=== PATIENT | male | born 1975 | race Hispanic/Latino ===

== ENCOUNTER 2019-07-13 08:46 | Outpatient (CLI) | payer OTHER ==
--- NOTE | 2019-07-13 10:07 | MRI ---
LUMBAR SPINE MRI WITH AND WITHOUT CONTRAST: HISTORY: Lumbar degenerative disc disease. COMPARISON: None. TECHNIQUE: MRI lumbar spine is performed with and without intravenous gadolinium administration. Multisequential , multiplanar imaging is performed. FINDINGS: Appropriate T1 marrow signal intensity of the lumbar vertebrae. Lumbar spine vertebral body height is maintained. No fracture. No significant STIR hyperintensity to suggest vertebral body edema or ligamentous injury. Appropriate signal intensity of the visualized solid organs. Appropriate signal intensity of the visualized paraspinal muscles. Postcontrast images do not demonstrate any abnormal enhancement within the thecal sac including the c auda equina and medullaris. There is no abnormal enhancement with regards to the vertebral bodies. There is abnormal enhancement and edema involving the posterior paraspinal muscles at the L4 and L5 l evel. There is hypertrophy and fluid involving the associated left and right facet joint at L4-L5. Enhancement and edema the paraspinal muscles likely represents reactive change from arthropathy. Conus medullaris terminates at the inferior aspect of L1. T12-L1: Adequate disc hydration. No significant central canal stenosis or significant neural foramina l narrowing. L1-L2: Adequate disc hydration. No significant central canal stenosis or significant neural foraminal narrowing. L2-L3: Adequate disc hydration. No significant central canal stenosis or significant neural foraminal narrowing. L3-L4: Adequate disc hydration. Mild loss of disc space height. Broad-based disc bulge, ligamentum fl avum thickening and facet hypertrophy result in mild central canal stenosis. Bilaterally the neural foramina are patent. L4-L5: Adequate disc hydration. No severe loss of disc space height. Broad-based disc bulge with a sm all posterior disc extrusion. There is associated enhancement, T2/STIR hyperintensity along the posterior margin of the annulus compatible with a fissure at the level of the small disc extrusion. T here is ligamentum flavum thickening and facet hypertrophy. Moderate central canal stenosis. Narrowing of both subarticular zones with mass effect upon the traversing right L5 nerve root. Comple te obscuration of the traversing left L5 nerve root. Mild right neural foraminal narrowing. Moderate left neural foraminal narrowing. L5-S1: Adequate disc hydration. There is a central/right subarticular disc bulge. There is associated T2 and STIR hyperintensity, along with enhancement suggesting annular fissure. There is mass effect and partial obscuration traversing right S1 nerve root. No significant stenosis upon the theca l sac or left subarticular zone. Mild to moderate right neural foraminal narrowing. Mild left neural foraminal narrowing. IMPRESSION: 1. Annular fissures at L4-L5 and L5-S1. 2. Moderate central canal stenosis at L4-L5. Complete obscuration traversing left L5 nerve root. Mode rate left neural foraminal narrowing. 3. Mass effect and partial obscuration traversing right S1 nerve root at L5-S1. Mild to moderate righ t neural foraminal narrowing. Transcribed Date/Time: 07/13/2019 10:37 AM
[2019-07-13] MEDS ORDERED: Magnevist 469MG/ML 20 ML VIAL ONE (17:02)
== END 2019-07-13 08:47 | disposition home or self-care (01) ==
LOC: BICMRI 08:46
PROVIDERS: ATTEND Family Medicine
DX: M51.36 Other intervertebral disc degeneration, lumbar region (principal); M51.87 Other intervertebral disc disorders, lumbosacral region; M48.061 Spinal stenosis, lumbar region without neurogenic claudication
CPT/HCPCS: 72158; 82565; A9579

== ENCOUNTER 2023-04-08 08:41 | Outpatient (CLI) | payer BC | END 2023-04-08 08:42 | disposition home or self-care (01) | LOC: MRI 08:41 | PROVIDERS: ATTEND Clinical Nurse Specialist Medical-Surgical | DX: M51.16 Intervertebral disc disorders with radiculopathy, lumbar region (principal); M47.816 Spondylosis without myelopathy or radiculopathy, lumbar region; M48.061 Spinal stenosis, lumbar region without neurogenic claudication | CPT/HCPCS: 72148 ==

== ENCOUNTER 2023-05-13 08:46 | Outpatient (CLI) | payer BC | END 2023-05-13 08:47 | disposition home or self-care (01) | LOC: CT 08:46 | PROVIDERS: ATTEND Surgery | DX: M51.26 Other intervertebral disc displacement, lumbar region (principal); M47.816 Spondylosis without myelopathy or radiculopathy, lumbar region | CPT/HCPCS: 72131 ==

== ENCOUNTER 2024-09-04 07:57 | Outpatient (CLI) | payer BC | END 2024-09-04 07:58 | disposition home or self-care (01) | LOC: BICMRI 07:57 | PROVIDERS: ATTEND Family Medicine | DX: M25.511 Pain in right shoulder (principal); M25.611 Stiffness of right shoulder, not elsewhere classified; R29.898 Other symptoms and signs involving the musculoskeletal system; M75.121 Complete rotator cuff tear or rupture of right shoulder, not specified as traumatic; M19.011 Primary osteoarthritis, right shoulder; Z98.890 Other specified postprocedural states ==

== ENCOUNTER 2024-10-15 11:39 | Outpatient (CLI) | payer BC ==
[2024-10-15 12:26] LABS: #Basophils 0.06 10x3/uL (0.0-0.2); %Basophils 0.9 % (0.0-1.0); %Eosinophils 1.7 % (0.0-10.0); %Lymphocytes 23.4 % (21.0-51.0); %Monocytes 10.4 % (0.0-10.0); %Neutrophils 63.1 % (42.0-75.0); Hematocrit 50.5 % (42.0-52.0); Hemoglobin 17.2 g/dL (14.0-18.0); Mean Corpuscular HGB CONC 34.1 g/dL (32.0-36.0); Mean Corpuscular Hemoglobin 30.1 pg (27.0-31.0); Mean Corpuscular Volume 88.3 fL (78.0-98.0); Mean Platelet Volume 11.8 fL (7.4-10.4); Platelet Count 167 10x3/uL (130-400); RBC Distribution Width 12.6 % (11.5-14.5); Red Blood Cell (RBC) Count 5.72 mill/uL (4.70-6.10)
[2024-10-15 12:48] LABS: Anion Gap 14 mmol/L (10-20); BUN (Urea Nitrogen) 15 mg/dL (8.9-20.6); Calc. Creatinine Clearance 0 mL/min (70-130); Carbon Dioxide 25 mmol/L (22-29); Chloride 104 mmol/L (98-107); Estimated GFR 71; Glucose 196 mg/dL (70-105); Potassium 4.3 mmol/L (3.5-5.1); Sodium 139 mmol/L (136-145)
== END 2024-10-15 11:40 | disposition home or self-care (01) ==
LOC: LABBT 11:39
PROVIDERS: ATTEND Orthopaedic Surgery
DX: Z01.818 Encounter for other preprocedural examination (principal); M75.111 Incomplete rotator cuff tear or rupture of right shoulder, not specified as traumatic
CPT/HCPCS: 80048; 85025; 93005; 93010